=== PATIENT | female | born 1950 | race Caucasian/White ===

== ENCOUNTER 2016-07-21 20:47 | Inpatient (IN) | payer MEDICARE, MEDICAID ==
[~2016-07-21] VITALS: Ht 157.5 cm; Wt 99.8 kg
[2016-07-21 20:00] VITALS: BP_SYST 114; BP_DIAS 60; BP_DIAS 70
[~2016-07-21 20:47] MED LIST: ATEN50TA PO; ESCI20TA36 PO; FURO20TA4 PO; HYDR-523 PO; LEVO100T9 PO; LORA0.5T2 PO; OMEP20TA80 PO; RANI300T4 PO; ZOLP10TA6 PO
[2016-07-21] MEDS ORDERED: CLONIDINE 0.1MG TABLET PO PRN (21:30)
[2016-07-21] MEDS ORDERED: DIPHENHYDRAMINE 50MG/ML VIAL IV PRN (21:30)
[2016-07-21] MEDS ORDERED: NA PHOS,M-B/NA PHOS,DI-BA ENEMA 118ML PR PRN (21:30)
[2016-07-21] MEDS ORDERED: MAGNESIUM/ALUMINUM HYDROXIDE/SIMETHICONE 30ML UDC PO PRN (21:30)
[2016-07-21] MEDS: POLYETHYLENE GLYCOL 3350 (17GM) 1 DOSE PACK PO SCH (22:00)
[2016-07-21] MEDS ORDERED: THROAT LOZENGES-BENZOCAINE/MENTH/CETYLPYRD CL LOZENGES MM PRN (22:30)
[2016-07-21] MEDS ORDERED: PHENOL/SODIUM PHENOLATE 1.4% SRPAY 177ML MT PRN (22:30)
[2016-07-22] MEDS: SODIUM CHLORIDE 0.9% INJ 3ML FLUSH IVF SCH ×4 (00:10→22:14)
[2016-07-22] MEDS: MORPHINE SULFATE 30MG TABLET SR PO SCH ×2 (00:10→08:53)
[2016-07-22] MEDS: ENOXAPARIN 30MG/0.3ML SYR SUBCUT SCH ×3 (00:11→22:35)
[2016-07-22] MEDS: LEVOTHYROXINE SODIUM 150MCG TABLET PO SCH (06:22)
[2016-07-22 06:47] LABS: BASOPHILS % 0.7 % (0.0-2.0); HEMATOCRIT. 31.6 % (36.0-48.0); HEMOGLOBIN. 10.3 g/dL (12.0-16.0); LYMPHOCYTES % 16.3 % (20.0-50.0); MEAN CORPUSCULAR HEMOGLOBIN 27.4 pg (28.0-32.0); MEAN CORPUSCULAR HGB CONC 32.7 g/dL (31.0-37.0); MEAN CORPUSCULAR VOLUME 83.6 fL (81.0-99.0); MONOCYTES % 6.7 % (2.0-8.0); NEUTROPHILS % 73.3 % (40.0-76.0); PLATELET 450 x1000/uL (130-400); RED BLOOD CELL COUNT 3.77 mill/uL (4.2-5.4); RED CELL DISTRIBUTION WIDTH 16.9 % (11.6-14.6); WHITE BLOOD COUNT 13.6 x1000/uL (4.5-11.0)
[2016-07-22 07:04] LABS: ALBUMIN 1.9 g/dL (3.4-5.0); ANION GAP 13; CALCIUM 8.9 mg/dL (8.5-10.1); CARBON DIOXIDE 32 mEq/L (21-32); CHLORIDE 84 mEq/L (98-107); INDEX HEMOLYSI 1 (1-3); INDEX ICTERIC 1 (1-4); INDEX LIPEMIC 1 (1-3)
[2016-07-22 07:12] LABS: ALANINE AMINOTRANSFERASE 16 IU/L (13-61); PREALBUMIN 4.7 mg/dL (20.0-40.0); UREA NITROGEN BLOOD 11 mg/dL (7-21); eGFR > 60 mL/min (>60)
[2016-07-22 08:00] VITALS: BP 110/61
[2016-07-22] MEDS: DOCUSATE SODIUM 100MG CAPSULE PO SCH ×2 (08:53→17:00)
[2016-07-22] MEDS: FUROSEMIDE 20MG TABLET PO SCH (08:53)
[2016-07-22] MEDS: ATENOLOL 50 MG TABLET PO SCH (08:55)
[2016-07-22] MEDS ORDERED: NA PHOS,M-B/NA PHOS,DI-BA ENEMA 118ML PR NR (11:30)
[2016-07-22] MEDS ORDERED: OXYCODONE HCL 5MG TABLET PO SCH (11:30)
[2016-07-22] MEDS: LEVOFLOXACIN 500MG TABLET PO SCH (11:45)
[2016-07-22 12:40] LABS: AMMONIA 30 uMol/L (<32)
[2016-07-22 14:37] LABS: CLARITY URINE CLOUDY (CLEAR); COLOR URINE DARK YELLOW (YELLOW); GLUCOSE URINE NEGATIVE (NEGATIVE); KETONES URINE TRACE (NEGATIVE); LEUKOCYTE ESTERASE URINE 3+ (NEGATIVE); NITRITE URINE POSITIVE (NEGATIVE); OCCULT BLOOD URINE 2+ (NEGATIVE); PROTEIN URINE 1+ (NEGATIVE); SPECIFIC GRAVITY URINE 1.018 (1.005-1.030)
[2016-07-22 15:08] LABS: WBC URINE 50-100 /hpf (0-2)
[2016-07-22 15:09] LABS: BACTERIA URINE 3+; SQUAMOUS EPITHELIAL CELL URINE FEW /lpf (RARE/1+)
[2016-07-22 15:10] LABS: HYALINE CASTS URINE 0-5 /lpf
[2016-07-22] MEDS: OXYCODONE HCL 5MG TABLET PO SCH (17:00)
[2016-07-22 20:00] VITALS: BP 99/51
[2016-07-22] MEDS: POLYETHYLENE GLYCOL 3350 (17GM) 1 DOSE PACK PO SCH (21:00)
[2016-07-22] MEDS: HYDROCODONE/ACETAMINOPHEN 10/325MG TABLET PO PRN (22:21)
[2016-07-23] MEDS: HYDROCODONE/ACETAMINOPHEN 10/325MG TABLET PO PRN (04:04)
[2016-07-23 06:13] LABS: HEMATOCRIT. 30.5 % (36.0-48.0); HEMOGLOBIN. 10.1 g/dL (12.0-16.0); MEAN CORPUSCULAR HEMOGLOBIN 27.6 pg (28.0-32.0); MEAN CORPUSCULAR HGB CONC 33.2 g/dL (31.0-37.0); MEAN PLATELET VOLUME 7.7 fl (7.4-10.4); PLATELET 518 x1000/uL (130-400); RED BLOOD CELL COUNT 3.68 mill/uL (4.2-5.4); RED CELL DISTRIBUTION WIDTH 16.7 % (11.6-14.6); WHITE BLOOD COUNT 12.6 x1000/uL (4.5-11.0)
[2016-07-23 06:16] LABS: DIFFERENTIAL COMMENT 1
[2016-07-23] MEDS: SODIUM CHLORIDE 0.9% INJ 3ML FLUSH IVF SCH ×3 (06:30→22:23)
[2016-07-23] MEDS: LEVOTHYROXINE SODIUM 150MCG TABLET PO SCH (06:30)
[2016-07-23 06:39] LABS: ALANINE AMINOTRANSFERASE 17 IU/L (13-61); ANION GAP 17; CALCIUM 8.7 mg/dL (8.5-10.1); CARBON DIOXIDE 32 mEq/L (21-32); CHLORIDE 79 mEq/L (98-107); INDEX HEMOLYSI 1 (1-3); INDEX ICTERIC 1 (1-4); INDEX LIPEMIC 1 (1-3); UREA NITROGEN BLOOD 17 mg/dL (7-21); eGFR > 60 mL/min (>60)
[2016-07-23 08:00] VITALS: BP 106/70
[2016-07-23] MEDS: ATENOLOL 50 MG TABLET PO SCH (08:40)
[2016-07-23] MEDS: DOCUSATE SODIUM 100MG CAPSULE PO SCH ×2 (08:47→16:27)
[2016-07-23] MEDS: OXYCODONE HCL 5MG TABLET PO SCH ×3 (08:47→16:28)
[2016-07-23] MEDS: FUROSEMIDE 20MG TABLET PO SCH (08:48)
[2016-07-23] MEDS: ENOXAPARIN 30MG/0.3ML SYR SUBCUT SCH ×2 (08:49→22:23)
[2016-07-23 10:01] LABS: ANISOCYTOSIS 1+; PLATELET ESTIMATE INCREASED
[2016-07-23] MEDS: LEVOFLOXACIN 500MG TABLET PO SCH (11:06)
[2016-07-23] MEDS ORDERED: VISCOUS LIDOCAINE 2% 15 ML UDC MM SCH (18:30)
[2016-07-23] MEDS: LIDOCAINE HCL 20 MG/ML 100ML BOTTLE MM PRN (18:48)
[2016-07-23 20:00] VITALS: BP 132/68
[2016-07-23] MEDS: POLYETHYLENE GLYCOL 3350 (17GM) 1 DOSE PACK PO SCH (22:23)
[2016-07-24] MEDS: HYDROCODONE/ACETAMINOPHEN 10/325MG TABLET PO PRN ×2 (01:26→15:24)
[2016-07-24] MEDS: LEVOTHYROXINE SODIUM 150MCG TABLET PO SCH (06:19)
[2016-07-24] MEDS: SODIUM CHLORIDE 0.9% INJ 3ML FLUSH IVF SCH ×3 (06:19→21:47)
[2016-07-24 07:16] LABS: HEMATOCRIT. 32.7 % (36.0-48.0); HEMOGLOBIN. 10.9 g/dL (12.0-16.0); MEAN CORPUSCULAR HEMOGLOBIN 27.8 pg (28.0-32.0); MEAN CORPUSCULAR HGB CONC 33.4 g/dL (31.0-37.0); MEAN CORPUSCULAR VOLUME 83.1 fL (81.0-99.0); MEAN PLATELET VOLUME 7.9 fl (7.4-10.4); PLATELET 596 x1000/uL (130-400); RED BLOOD CELL COUNT 3.94 mill/uL (4.2-5.4); RED CELL DISTRIBUTION WIDTH 16.8 % (11.6-14.6); WHITE BLOOD COUNT 14.7 x1000/uL (4.5-11.0)
[2016-07-24 07:29] LABS: INDEX HEMOLYSI 1 (1-3)
[2016-07-24 07:35] LABS: DIFFERENTIAL COMMENT 1
[2016-07-24 07:45] LABS: FERRITIN 509 ng/mL (10-291)
[2016-07-24 07:48] LABS: CHLORIDE 79 mEq/L (98-107); INDEX HEMOLYSI 1 (1-3); INDEX ICTERIC 1 (1-4); INDEX LIPEMIC 1 (1-3)
[2016-07-24 07:52] LABS: VITAMIN B12 SERUM > 2000 pg/mL (211-911)
[2016-07-24 08:00] VITALS: BP 146/72
[2016-07-24] MEDS: DOCUSATE SODIUM 100MG CAPSULE PO SCH ×2 (08:24→16:07)
[2016-07-24] MEDS: OXYCODONE HCL 5MG TABLET PO SCH (08:24)
[2016-07-24] MEDS: ATENOLOL 50 MG TABLET PO SCH (08:25)
[2016-07-24 08:26] LABS: ALANINE AMINOTRANSFERASE 16 IU/L (13-61); ALBUMIN 2.1 g/dL (3.4-5.0); ANION GAP 20; CALCIUM 9.2 mg/dL (8.5-10.1); CARBON DIOXIDE 27 mEq/L (21-32); HDL CHOLESTEROL 18 mg/dL (40-59); IRON 27 ug/dL (50-175); LDL CHOLESTEROL 111 mg/dL (5-100); MAGNESIUM 1.8 mg/dL (1.8-2.4); PHOSPHORUS 2.2 mg/dL (2.5-4.9); TOTAL IRON BINDING CAPACITY 155 ug/dL (250-450); TRIGLYCERIDE 161 mg/dL (0-150); UREA NITROGEN BLOOD 14 mg/dL (7-21); eGFR > 60 mL/min (>60)
[2016-07-24] MEDS: ENOXAPARIN 30MG/0.3ML SYR SUBCUT SCH ×2 (08:26→21:46)
[2016-07-24] MEDS: LIDOCAINE HCL 20 MG/ML 100ML BOTTLE MM SCH ×3 (08:28→16:08)
[2016-07-24 10:26] LABS: PLATELET ESTIMATE INCREASED
[2016-07-24 10:27] LABS: ANISOCYTOSIS 1+; GIANT PLATELETS 1+
[2016-07-24] MEDS: LEVOFLOXACIN 500MG TABLET PO SCH (11:30)
[2016-07-24] MEDS: POTASSIUM-SODIUM PHOSPHATE POWDER PACKET PO SCH (16:07)
[2016-07-24] MEDS: FERROUS SULFATE 325MG TABLET PO SCH (16:07)
[2016-07-24 20:00] VITALS: BP 120/70
[2016-07-24] MEDS: POLYETHYLENE GLYCOL 3350 (17GM) 1 DOSE PACK PO SCH (21:45)
[2016-07-25] MEDS: HYDROCODONE/ACETAMINOPHEN 10/325MG TABLET PO PRN ×3 (01:26→21:44)
[2016-07-25] MEDS: SODIUM CHLORIDE 0.9% INJ 3ML FLUSH IVF SCH ×3 (06:05→21:44)
[2016-07-25] MEDS: LEVOTHYROXINE SODIUM 150MCG TABLET PO SCH (06:05)
[2016-07-25 07:16] LABS: HEMATOCRIT. 29.7 % (36.0-48.0); HEMOGLOBIN. 10.1 g/dL (12.0-16.0); MEAN CORPUSCULAR HEMOGLOBIN 28.1 pg (28.0-32.0); MEAN CORPUSCULAR VOLUME 82.7 fL (81.0-99.0); MEAN PLATELET VOLUME 7.5 fl (7.4-10.4); PLATELET 565 x1000/uL (130-400); RED BLOOD CELL COUNT 3.59 mill/uL (4.2-5.4); RED CELL DISTRIBUTION WIDTH 16.9 % (11.6-14.6); WHITE BLOOD COUNT 13.9 x1000/uL (4.5-11.0)
[2016-07-25 07:29] LABS: DIFFERENTIAL COMMENT 1
[2016-07-25 07:30] LABS: CHLORIDE 78 mEq/L (98-107); INDEX HEMOLYSI 1 (1-3); INDEX ICTERIC 1 (1-4); INDEX LIPEMIC 1 (1-3)
[2016-07-25 07:48] LABS: ALANINE AMINOTRANSFERASE 14 IU/L (13-61); ANION GAP 16; CALCIUM 8.4 mg/dL (8.5-10.1); CARBON DIOXIDE 30 mEq/L (21-32); UREA NITROGEN BLOOD 16 mg/dL (7-21); eGFR > 60 mL/min (>60)
[2016-07-25 08:00] VITALS: BP 136/73
[2016-07-25] MEDS: LIDOCAINE HCL 20 MG/ML 100ML BOTTLE MM SCH ×3 (09:00→13:00)
[2016-07-25] MEDS: DOCUSATE SODIUM 100MG CAPSULE PO SCH ×2 (09:12→17:48)
[2016-07-25] MEDS: FERROUS SULFATE 325MG TABLET PO SCH ×3 (09:13→17:48)
[2016-07-25] MEDS: ATENOLOL 50 MG TABLET PO SCH (09:13)
[2016-07-25] MEDS: ENOXAPARIN 30MG/0.3ML SYR SUBCUT SCH ×2 (09:13→21:45)
[2016-07-25] MEDS: POTASSIUM-SODIUM PHOSPHATE POWDER PACKET PO SCH ×2 (09:13→17:48)
[2016-07-25] MEDS: LEVOFLOXACIN 500MG TABLET PO SCH (10:02)
[2016-07-25 11:08] LABS: ANISOCYTOSIS 1+; PLATELET ESTIMATE INCREASED
[2016-07-25] MEDS: DEMECLOCYCLINE HCL 300MG TABLET PO SCH ×2 (14:32→21:44)
[2016-07-25 20:00] VITALS: BP 134/83
[2016-07-25 20:06] LABS: AMMONIA 33 uMol/L (<32); INDEX HEMOLYSI 1 (1-3)
[2016-07-25 20:30] LABS: T3 FREE 1.33 pg/ml (2.18-3.98); T4 FREE 1.55 ng/dL (0.76-1.46)
[2016-07-25] MEDS: POLYETHYLENE GLYCOL 3350 (17GM) 1 DOSE PACK PO SCH (21:45)
[2016-07-26] MEDS: SODIUM CHLORIDE 0.9% INJ 3ML FLUSH IVF SCH ×3 (05:59→22:06)
[2016-07-26] MEDS: THROAT LOZENGES-BENZOCAINE/MENTH/CETYLPYRD CL LOZENGES MM PRN ×2 (06:00→12:55)
[2016-07-26] MEDS: DEMECLOCYCLINE HCL 300MG TABLET PO SCH ×3 (06:00→22:05)
[2016-07-26] MEDS: LEVOTHYROXINE SODIUM 150MCG TABLET PO SCH (06:00)
[2016-07-26 06:13] LABS: HEMATOCRIT. 29.1 % (36.0-48.0); HEMOGLOBIN. 9.7 g/dL (12.0-16.0); MEAN CORPUSCULAR HEMOGLOBIN 27.2 pg (28.0-32.0); MEAN CORPUSCULAR HGB CONC 33.3 g/dL (31.0-37.0); MEAN CORPUSCULAR VOLUME 81.7 fL (81.0-99.0); MEAN PLATELET VOLUME 7.3 fl (7.4-10.4); PLATELET 546 x1000/uL (130-400); RED BLOOD CELL COUNT 3.56 mill/uL (4.2-5.4); WHITE BLOOD COUNT 13.3 x1000/uL (4.5-11.0)
[2016-07-26 07:27] LABS: ANION GAP 16; CALCIUM 8.1 mg/dL (8.5-10.1); CARBON DIOXIDE 30 mEq/L (21-32); CHLORIDE 78 mEq/L (98-107); INDEX HEMOLYSI 1 (1-3); INDEX ICTERIC 1 (1-4); INDEX LIPEMIC 1 (1-3); UREA NITROGEN BLOOD 13 mg/dL (7-21); eGFR > 60 mL/min (>60)
[2016-07-26 07:58] LABS: DIFFERENTIAL COMMENT 1
[2016-07-26 08:00] VITALS: BP 115/67
[2016-07-26] MEDS: DOCUSATE SODIUM 100MG CAPSULE PO SCH ×2 (08:43→16:19)
[2016-07-26] MEDS: FERROUS SULFATE 325MG TABLET PO SCH ×3 (08:44→16:19)
[2016-07-26] MEDS: POTASSIUM-SODIUM PHOSPHATE POWDER PACKET PO SCH ×2 (08:45→16:19)
[2016-07-26] MEDS: HYDROCODONE/ACETAMINOPHEN 10/325MG TABLET PO PRN ×2 (08:45→23:11)
[2016-07-26] MEDS: ENOXAPARIN 30MG/0.3ML SYR SUBCUT SCH ×2 (08:46→20:59)
[2016-07-26] MEDS: ATENOLOL 50 MG TABLET PO SCH (08:50)
[2016-07-26] MEDS: LEVOFLOXACIN 500MG TABLET PO SCH (10:03)
[2016-07-26 10:20] VITALS: BP 99/60
[2016-07-26] MEDS: SODIUM CHLORIDE 1000MG TABLET PO SCH ×2 (12:54→16:19)
[2016-07-26 16:54] LABS: PLATELET ESTIMATE INCREASED
[2016-07-26 20:00] VITALS: BP 107/55
[2016-07-26] MEDS: ACETAMINOPHEN 325MG TABLET PO PRN (20:58)
[2016-07-26] MEDS: POLYETHYLENE GLYCOL 3350 (17GM) 1 DOSE PACK PO SCH (21:00)
[2016-07-27 06:06] LABS: HEMATOCRIT. 30.6 % (36.0-48.0); HEMOGLOBIN. 10.2 g/dL (12.0-16.0); MEAN CORPUSCULAR HEMOGLOBIN 27.6 pg (28.0-32.0); MEAN CORPUSCULAR HGB CONC 33.2 g/dL (31.0-37.0); MEAN PLATELET VOLUME 7.2 fl (7.4-10.4); PLATELET 546 x1000/uL (130-400); RED BLOOD CELL COUNT 3.69 mill/uL (4.2-5.4); RED CELL DISTRIBUTION WIDTH 17.3 % (11.6-14.6)
[2016-07-27 06:09] LABS: CHLORIDE 82 mEq/L (98-107); INDEX HEMOLYSI 1 (1-3); INDEX ICTERIC 1 (1-4); INDEX LIPEMIC 1 (1-3)
[2016-07-27] MEDS: SODIUM CHLORIDE 0.9% INJ 3ML FLUSH IVF SCH ×4 (06:19→21:53)
[2016-07-27] MEDS: LEVOTHYROXINE SODIUM 150MCG TABLET PO SCH (06:20)
[2016-07-27] MEDS: DEMECLOCYCLINE HCL 300MG TABLET PO SCH ×3 (06:20→21:52)
[2016-07-27 06:22] LABS: ANION GAP 14; CALCIUM 8.1 mg/dL (8.5-10.1); CARBON DIOXIDE 29 mEq/L (21-32); MAGNESIUM 1.9 mg/dL (1.8-2.4); UREA NITROGEN BLOOD 12 mg/dL (7-21); eGFR > 60 mL/min (>60)
[2016-07-27 06:38] LABS: DIFFERENTIAL COMMENT 1
[2016-07-27 08:00] VITALS: BP 133/68
[2016-07-27] MEDS ORDERED: NA PHOS,M-B/NA PHOS,DI-BA ENEMA 118ML PR NR (08:30)
[2016-07-27] MEDS: HYDROCODONE/ACETAMINOPHEN 10/325MG TABLET PO PRN ×2 (08:54→23:19)
[2016-07-27] MEDS: ATENOLOL 50 MG TABLET PO SCH (08:54)
[2016-07-27] MEDS: DOCUSATE SODIUM 100MG CAPSULE PO SCH ×2 (08:54→17:04)
[2016-07-27] MEDS: SODIUM CHLORIDE 1000MG TABLET PO SCH ×3 (08:54→17:04)
[2016-07-27] MEDS: FERROUS SULFATE 325MG TABLET PO SCH ×3 (08:54→17:04)
[2016-07-27] MEDS: ENOXAPARIN 30MG/0.3ML SYR SUBCUT SCH ×2 (08:55→21:52)
[2016-07-27] MEDS: LACTULOSE 20G/30ML UDC PO SCH ×4 (09:00→21:00)
[2016-07-27] MEDS: BISACODYL 10MG SUPP PR SCH (09:00)
[2016-07-27] MEDS: LEVOFLOXACIN 500MG TABLET PO SCH (11:18)
[2016-07-27] MEDS: LIDOCAINE HCL 20 MG/ML 100ML BOTTLE MM PRN (11:19)
[2016-07-27] MEDS: THROAT LOZENGES-BENZOCAINE/MENTH/CETYLPYRD CL LOZENGES MM PRN ×2 (11:19→17:05)
[2016-07-27 13:30] LABS: PLATELET ESTIMATE INCREASED
[2016-07-27 14:23] LABS: 25-HYDROXY VITAMIN D3 14 ng/mL (.)
[2016-07-27 19:44] VITALS: BP 107/64
[2016-07-27] MEDS: POLYETHYLENE GLYCOL 3350 (17GM) 1 DOSE PACK PO SCH (21:00)
[2016-07-28] MEDS: THROAT LOZENGES-BENZOCAINE/MENTH/CETYLPYRD CL LOZENGES MM PRN (04:48)
[2016-07-28] MEDS: LEVOTHYROXINE SODIUM 150MCG TABLET PO SCH (05:48)
[2016-07-28] MEDS: DEMECLOCYCLINE HCL 300MG TABLET PO SCH ×3 (05:48→21:00)
[2016-07-28] MEDS: SODIUM CHLORIDE 0.9% INJ 3ML FLUSH IVF SCH ×3 (05:49→21:01)
[2016-07-28 05:57] LABS: ANION GAP 12; CALCIUM 8.2 mg/dL (8.5-10.1); CARBON DIOXIDE 31 mEq/L (21-32); CHLORIDE 84 mEq/L (98-107); INDEX HEMOLYSI 1 (1-3); INDEX ICTERIC 1 (1-4); INDEX LIPEMIC 1 (1-3); UREA NITROGEN BLOOD 10 mg/dL (7-21); eGFR > 60 mL/min (>60)
[2016-07-28 06:21] LABS: HEMATOCRIT. 28.4 % (36.0-48.0); HEMOGLOBIN. 9.6 g/dL (12.0-16.0); MEAN CORPUSCULAR HEMOGLOBIN 27.9 pg (28.0-32.0); MEAN CORPUSCULAR HGB CONC 33.7 g/dL (31.0-37.0); MEAN CORPUSCULAR VOLUME 82.9 fL (81.0-99.0); MEAN PLATELET VOLUME 7.4 fl (7.4-10.4); PLATELET 599 x1000/uL (130-400); RED BLOOD CELL COUNT 3.42 mill/uL (4.2-5.4); RED CELL DISTRIBUTION WIDTH 16.8 % (11.6-14.6); WHITE BLOOD COUNT 15.2 x1000/uL (4.5-11.0)
[2016-07-28 07:07] LABS: DIFFERENTIAL COMMENT 1
[2016-07-28 08:00] VITALS: BP 105/51
[2016-07-28] MEDS: DOCUSATE SODIUM 100MG CAPSULE PO SCH ×2 (08:55→16:44)
[2016-07-28] MEDS: FERROUS SULFATE 325MG TABLET PO SCH ×3 (08:55→16:44)
[2016-07-28] MEDS: LACTULOSE 20G/30ML UDC PO SCH ×4 (08:55→21:01)
[2016-07-28] MEDS: SODIUM CHLORIDE 1000MG TABLET PO SCH ×3 (08:55→16:44)
[2016-07-28] MEDS: ATENOLOL 50 MG TABLET PO SCH (08:56)
[2016-07-28] MEDS: ENOXAPARIN 30MG/0.3ML SYR SUBCUT SCH ×2 (08:57→21:01)
[2016-07-28] MEDS: BISACODYL 10MG SUPP PR SCH (09:00)
[2016-07-28 09:01] LABS: ANISOCYTOSIS 1+; PLATELET ESTIMATE INCREASED
[2016-07-28] MEDS: ACETAMINOPHEN 325MG TABLET PO PRN (09:09)
[2016-07-28] MEDS: LEVOFLOXACIN 500MG TABLET PO SCH (10:22)
[2016-07-28] MEDS ORDERED: ERGOCALCIFEROL 50000UNITS CAPSULE PO SCH (17:30)
[2016-07-28 20:00] VITALS: BP 106/71
[2016-07-28 20:25] LABS: GLUCOSE URINE NEGATIVE (NEGATIVE); KETONES URINE NEGATIVE (NEGATIVE); LEUKOCYTE ESTERASE URINE 1+ (NEGATIVE); NITRITE URINE NEGATIVE (NEGATIVE); OCCULT BLOOD URINE 2+ (NEGATIVE); PROTEIN URINE TRACE (NEGATIVE); SPECIFIC GRAVITY URINE 1.021 (1.005-1.030)
[2016-07-28 20:26] LABS: COLOR URINE YELLOW (YELLOW)
[2016-07-28 20:27] LABS: CLARITY URINE HAZY (CLEAR)
[2016-07-28 20:42] LABS: BACTERIA URINE 2+; SQUAMOUS EPITHELIAL CELL URINE FEW /lpf (RARE/1+)
[2016-07-28] MEDS: POLYETHYLENE GLYCOL 3350 (17GM) 1 DOSE PACK PO SCH (21:00)
[2016-07-29] MEDS: ONDANSETRON HCL 4MG/2ML VIAL IV PRN ×2 (01:28→09:50)
[2016-07-29] MEDS: LEVOTHYROXINE SODIUM 150MCG TABLET PO SCH (06:03)
[2016-07-29] MEDS: DEMECLOCYCLINE HCL 300MG TABLET PO SCH ×3 (06:03→21:04)
[2016-07-29] MEDS: SODIUM CHLORIDE 0.9% INJ 3ML FLUSH IVF SCH ×3 (06:03→21:04)
[2016-07-29] MEDS: LACTULOSE 20G/30ML UDC PO SCH ×2 (06:03→13:11)
[2016-07-29 06:55] LABS: HEMATOCRIT. 28.1 % (36.0-48.0); HEMOGLOBIN. 9.6 g/dL (12.0-16.0); MEAN CORPUSCULAR HEMOGLOBIN 27.9 pg (28.0-32.0); MEAN CORPUSCULAR VOLUME 82.1 fL (81.0-99.0); MEAN PLATELET VOLUME 7.2 fl (7.4-10.4); PLATELET 597 x1000/uL (130-400); RED BLOOD CELL COUNT 3.43 mill/uL (4.2-5.4); RED CELL DISTRIBUTION WIDTH 17.1 % (11.6-14.6); WHITE BLOOD COUNT 16.8 x1000/uL (4.5-11.0)
[2016-07-29] MEDS: THROAT LOZENGES-BENZOCAINE/MENTH/CETYLPYRD CL LOZENGES MM PRN ×2 (07:08→21:04)
[2016-07-29 07:15] LABS: ANION GAP 14; CALCIUM 8.3 mg/dL (8.5-10.1); CARBON DIOXIDE 30 mEq/L (21-32); CHLORIDE 84 mEq/L (98-107); INDEX HEMOLYSI 1 (1-3); INDEX ICTERIC 1 (1-4); INDEX LIPEMIC 1 (1-3); UREA NITROGEN BLOOD 10 mg/dL (7-21); eGFR > 60 mL/min (>60)
[2016-07-29 07:39] LABS: DIFFERENTIAL COMMENT 1
[2016-07-29 08:00] VITALS: BP 112/51
[2016-07-29] MEDS: ATENOLOL 50 MG TABLET PO SCH (09:00)
[2016-07-29] MEDS: BISACODYL 10MG SUPP PR SCH (09:30)
[2016-07-29] MEDS: SODIUM CHLORIDE 1000MG TABLET PO SCH ×3 (09:30→17:34)
[2016-07-29] MEDS: DOCUSATE SODIUM 100MG CAPSULE PO SCH (09:30)
[2016-07-29] MEDS: FERROUS SULFATE 325MG TABLET PO SCH ×3 (09:30→17:34)
[2016-07-29] MEDS: ENOXAPARIN 30MG/0.3ML SYR SUBCUT SCH ×2 (09:32→21:04)
[2016-07-29] MEDS: HYDROCODONE/ACETAMINOPHEN 10/325MG TABLET PO PRN ×2 (09:32→18:06)
[2016-07-29 09:45] VITALS: BP 130/67
[2016-07-29] MEDS: LEVOFLOXACIN 500MG TABLET PO SCH (10:28)
[2016-07-29 16:21] LABS: PLATELET ESTIMATE INCREASED
[2016-07-29 18:05] VITALS: BP 135/80
[2016-07-29 20:00] VITALS: BP 109/69
[2016-07-30] MEDS: DEMECLOCYCLINE HCL 300MG TABLET PO SCH ×3 (06:09→21:09)
[2016-07-30] MEDS: SODIUM CHLORIDE 0.9% INJ 3ML FLUSH IVF SCH ×3 (06:09→21:09)
[2016-07-30] MEDS: LEVOTHYROXINE SODIUM 150MCG TABLET PO SCH (06:09)
[2016-07-30] MEDS: THROAT LOZENGES-BENZOCAINE/MENTH/CETYLPYRD CL LOZENGES MM PRN (06:10)
[2016-07-30 06:30] LABS: BASOPHILS % 0.8 % (0.0-2.0); EOSINOPHILS % 2.9 % (0.0-5.0); HEMATOCRIT. 31.4 % (36.0-48.0); HEMOGLOBIN. 10.3 g/dL (12.0-16.0); LYMPHOCYTES % 12.5 % (20.0-50.0); MEAN CORPUSCULAR HEMOGLOBIN 27.2 pg (28.0-32.0); MEAN CORPUSCULAR HGB CONC 32.8 g/dL (31.0-37.0); MEAN CORPUSCULAR VOLUME 82.7 fL (81.0-99.0); MEAN PLATELET VOLUME 7.2 fl (7.4-10.4); MONOCYTES % 5.9 % (2.0-8.0); NEUTROPHILS % 77.9 % (40.0-76.0); PLATELET 656 x1000/uL (130-400); RED CELL DISTRIBUTION WIDTH 16.9 % (11.6-14.6); WHITE BLOOD COUNT 17.4 x1000/uL (4.5-11.0)
[2016-07-30 07:12] LABS: ANION GAP 15; CALCIUM 8.5 mg/dL (8.5-10.1); CARBON DIOXIDE 28 mEq/L (21-32); CHLORIDE 86 mEq/L (98-107); INDEX HEMOLYSI 1 (1-3); INDEX ICTERIC 1 (1-4); INDEX LIPEMIC 1 (1-3); UREA NITROGEN BLOOD 12 mg/dL (7-21)
[2016-07-30 07:13] LABS: eGFR > 60 mL/min (>60)
[2016-07-30 07:58] VITALS: BP 128/87
[2016-07-30] MEDS: ATENOLOL 50 MG TABLET PO SCH (08:37)
[2016-07-30] MEDS: HYDROCODONE/ACETAMINOPHEN 10/325MG TABLET PO PRN (09:48)
[2016-07-30] MEDS: FERROUS SULFATE 325MG TABLET PO SCH ×3 (09:48→16:48)
[2016-07-30] MEDS: SODIUM CHLORIDE 1000MG TABLET PO SCH ×3 (09:48→16:48)
[2016-07-30] MEDS: ENOXAPARIN 30MG/0.3ML SYR SUBCUT SCH ×2 (09:49→21:09)
[2016-07-30] MEDS: LIDOCAINE 5% PATCH TOP SCH (12:55)
[2016-07-30 14:22] LABS: CLARITY URINE CLOUDY (CLEAR); COLOR URINE DARK YELLOW (YELLOW); GLUCOSE URINE NEGATIVE (NEGATIVE); KETONES URINE NEGATIVE (NEGATIVE); LEUKOCYTE ESTERASE URINE 1+ (NEGATIVE); NITRITE URINE NEGATIVE (NEGATIVE); OCCULT BLOOD URINE NEGATIVE (NEGATIVE); PROTEIN URINE TRACE (NEGATIVE); SPECIFIC GRAVITY URINE 1.022 (1.005-1.030)
[2016-07-30 14:39] LABS: BACTERIA URINE 1+; SQUAMOUS EPITHELIAL CELL URINE 3+ /lpf (RARE/1+)
[2016-07-30 14:40] LABS: RBC URINE NONE SEEN /hpf (0-2)
[2016-07-30 14:41] LABS: YEAST URINE FEW
[2016-07-30 20:00] VITALS: BP 111/55
[2016-07-31] MEDS: LEVOTHYROXINE SODIUM 150MCG TABLET PO SCH (06:23)
[2016-07-31] MEDS: DEMECLOCYCLINE HCL 300MG TABLET PO SCH ×3 (06:23→22:09)
[2016-07-31] MEDS: SODIUM CHLORIDE 0.9% INJ 3ML FLUSH IVF SCH ×3 (06:23→22:10)
[2016-07-31 06:27] LABS: BASOPHILS % 1.1 % (0.0-2.0); EOSINOPHILS % 3.5 % (0.0-5.0); HEMATOCRIT. 29.9 % (36.0-48.0); HEMOGLOBIN. 9.7 g/dL (12.0-16.0); LYMPHOCYTES % 15.3 % (20.0-50.0); MEAN CORPUSCULAR HEMOGLOBIN 26.9 pg (28.0-32.0); MEAN CORPUSCULAR HGB CONC 32.5 g/dL (31.0-37.0); MEAN CORPUSCULAR VOLUME 82.8 fL (81.0-99.0); MEAN PLATELET VOLUME 6.7 fl (7.4-10.4); MONOCYTES % 7.3 % (2.0-8.0); NEUTROPHILS % 72.8 % (40.0-76.0); PLATELET 651 x1000/uL (130-400); RED BLOOD CELL COUNT 3.62 mill/uL (4.2-5.4); RED CELL DISTRIBUTION WIDTH 17.1 % (11.6-14.6); WHITE BLOOD COUNT 16.3 x1000/uL (4.5-11.0)
[2016-07-31 07:13] LABS: ANION GAP 14; CALCIUM 8.4 mg/dL (8.5-10.1); CARBON DIOXIDE 29 mEq/L (21-32); CHLORIDE 89 mEq/L (98-107); INDEX HEMOLYSI 1 (1-3); INDEX ICTERIC 1 (1-4); INDEX LIPEMIC 1 (1-3); LIPASE 363 IU/L (73-393); UREA NITROGEN BLOOD 13 mg/dL (7-21); eGFR > 60 mL/min (>60)
[2016-07-31 07:59] VITALS: BP 107/59
[2016-07-31] MEDS: SODIUM CHLORIDE 1000MG TABLET PO SCH (08:18)
[2016-07-31] MEDS: ATENOLOL 50 MG TABLET PO SCH (08:19)
[2016-07-31] MEDS: ENOXAPARIN 30MG/0.3ML SYR SUBCUT SCH ×2 (08:20→22:09)
[2016-07-31] MEDS: FERROUS SULFATE 325MG TABLET PO SCH ×3 (08:20→18:36)
[2016-07-31] MEDS: LIDOCAINE 5% PATCH TOP SCH (08:22)
[2016-07-31] MEDS: HYDROCODONE/ACETAMINOPHEN 10/325MG TABLET PO PRN (09:39)
[2016-07-31] MEDS: THROAT LOZENGES-BENZOCAINE/MENTH/CETYLPYRD CL LOZENGES MM PRN ×2 (11:24→18:36)
[2016-07-31] MEDS: LIDOCAINE HCL 20 MG/ML 100ML BOTTLE MM PRN (11:25)
[2016-07-31 19:00] VITALS: BP 98/62
[2016-08-01] MEDS: ACETAMINOPHEN 325MG TABLET PO PRN ×3 (02:59→17:07)
[2016-08-01] MEDS: LEVOTHYROXINE SODIUM 150MCG TABLET PO SCH (06:32)
[2016-08-01] MEDS: SODIUM CHLORIDE 0.9% INJ 3ML FLUSH IVF SCH ×2 (06:32→14:55)
[2016-08-01] MEDS: DEMECLOCYCLINE HCL 300MG TABLET PO SCH ×2 (06:32→14:55)
[2016-08-01 06:51] LABS: BASOPHILS % 1.1 % (0.0-2.0); EOSINOPHILS % 4.1 % (0.0-5.0); HEMATOCRIT. 28.9 % (36.0-48.0); HEMOGLOBIN. 9.5 g/dL (12.0-16.0); LYMPHOCYTES % 13.8 % (20.0-50.0); MEAN CORPUSCULAR HEMOGLOBIN 27.3 pg (28.0-32.0); MEAN CORPUSCULAR VOLUME 82.7 fL (81.0-99.0); MEAN PLATELET VOLUME 6.8 fl (7.4-10.4); MONOCYTES % 7.8 % (2.0-8.0); NEUTROPHILS % 73.2 % (40.0-76.0); PLATELET 618 x1000/uL (130-400); RED CELL DISTRIBUTION WIDTH 16.7 % (11.6-14.6); WHITE BLOOD COUNT 14.9 x1000/uL (4.5-11.0)
[2016-08-01 07:20] LABS: ANION GAP 14; CALCIUM 8.3 mg/dL (8.5-10.1); CARBON DIOXIDE 29 mEq/L (21-32); CHLORIDE 89 mEq/L (98-107); INDEX HEMOLYSI 1 (1-3); INDEX ICTERIC 1 (1-4); INDEX LIPEMIC 1 (1-3); UREA NITROGEN BLOOD 13 mg/dL (7-21); eGFR > 60 mL/min (>60)
[2016-08-01 08:04] VITALS: BP 87/51
[2016-08-01] MEDS ORDERED: SODIUM CHLORIDE 0.9% 1,000 ML IV SCH (08:45)
[2016-08-01 08:57] LABS: BG BASE EXCESS 2.8 mmol/L (-2.0-2.0); BG CARBOXYHEMOGLOBIN 0.8 % (0.5-1.5); BG DEOXYHEMOGLOBIN 10.4 % (0.0-5.0); BG FRACTION INSPIRED OXYGEN 21; BG METHEMOGLOBIN 0.2 % (0.0-1.5); BG OXYGEN SATURATION 89.5 % (92.0-98.5); BG OXYHEMOGLOBIN 88.6 % (94.0-97.0); BG PCO2 34.7 mmHg (35.0-45.0); BG PH 7.492 (7.350-7.450); BG PO2 55.5 mmHg (75.0-100.0); BG SAMPLE SITE RIGHT RADIAL; BG TOTAL HEMOGLOBIN 10.9 g/dL (12.0-18.0); BG VENT MODE ROOM AIR
[2016-08-01] MEDS: ENOXAPARIN 30MG/0.3ML SYR SUBCUT SCH (09:21)
[2016-08-01] MEDS: FERROUS SULFATE 325MG TABLET PO SCH ×3 (09:22→17:07)
[2016-08-01] MEDS: ATENOLOL 50 MG TABLET PO SCH (09:23)
[2016-08-01] MEDS: LIDOCAINE 5% PATCH TOP SCH (09:24)
[2016-08-01] MEDS ORDERED: CEFTAZIDIME PENTAHYDRATE 1 G in DEXTROSE 5% WATER 50 ML IV SCH (10:00)
[2016-08-01] MEDS ORDERED: VANCOMYCIN 1500MG in DEXTROSE 5% WATER 250ML IV SCH (12:00)
[2016-08-01] MEDS ORDERED: LIDOCAINE HCL/PF 1% 2ML VIAL ONE (12:43)
[2016-08-01 12:44] LABS: CLARITY URINE CLOUDY (CLEAR); COLOR URINE DARK YELLOW (YELLOW); GLUCOSE URINE NEGATIVE (NEGATIVE); KETONES URINE NEGATIVE (NEGATIVE); LEUKOCYTE ESTERASE URINE 1+ (NEGATIVE); NITRITE URINE NEGATIVE (NEGATIVE); OCCULT BLOOD URINE NEGATIVE (NEGATIVE); PH URINE 5.5 (4.5-8.0); PROTEIN URINE NEGATIVE (NEGATIVE); SPECIFIC GRAVITY URINE 1.017 (1.005-1.030); UROBILINOGEN URINE 0.2 E.U./dL (0.2-1.0)
[2016-08-01] MEDS: THROAT LOZENGES-BENZOCAINE/MENTH/CETYLPYRD CL LOZENGES MM PRN (12:54)
[2016-08-01 13:12] LABS: BACTERIA URINE NONE SEEN; MUCUS URINE TRACE /lpf (< = 2+); RBC URINE 0-2 /hpf (0-2); SQUAMOUS EPITHELIAL CELL URINE FEW /lpf (RARE/1+)
[2016-08-01 16:38] VITALS: BP 104/56
[2016-08-01] MEDS ORDERED: LORA0.5T2 PO (20:15)
[2016-08-01] MEDS ORDERED: ZOLP10TA6 PO (20:15)
[2016-08-01] MEDS ORDERED: FURO20TA4 PO (20:15)
[2016-08-01] MEDS ORDERED: ESCI20TA36 PO (20:15)
[2016-08-01] MEDS ORDERED: HYDR-523 PO (20:15)
[2016-08-01] MEDS ORDERED: OMEP20CA10 PO (20:15)
[2016-08-02] MEDS ORDERED: VANCOMYCIN 1250MG in DEXTROSE 5% WATER 250ML IV SCH (06:00)
== END 2016-08-01 19:45 | disposition short-term general hospital (02) | DRG 542 ==
PROVIDERS: ADMIT Physical Medicine & Rehabilitation Spinal Cord Injury Medicine; ATTEND Internal Medicine
DX: M48.56XA Collapsed vertebra, not elsewhere classified, lumbar region, initial encounter for fracture (principal); E43 Unspecified severe protein-calorie malnutrition; G92 Toxic encephalopathy; A41.9 Sepsis, unspecified organism; E87.1 Hypo-osmolality and hyponatremia; N39.0 Urinary tract infection, site not specified; Z68.41 Body mass index [BMI] 40.0-44.9, adult; M48.06 Spinal stenosis, lumbar region; D64.9 Anemia, unspecified; E03.9 Hypothyroidism, unspecified; E66.01 Morbid (severe) obesity due to excess calories; K21.9 Gastro-esophageal reflux disease without esophagitis; M54.16 Radiculopathy, lumbar region; M75.102 Unspecified rotator cuff tear or rupture of left shoulder, not specified as traumatic; N18.1 Chronic kidney disease, stage 1; R74.0 Nonspecific elevation of levels of transaminase and lactic acid dehydrogenase [LDH]; W19.XXXA Unspecified fall, initial encounter; Z96.653 Presence of artificial knee joint, bilateral; M19.90 Unspecified osteoarthritis, unspecified site; R26.9 Unspecified abnormalities of gait and mobility; S82.892A Other fracture of left lower leg, initial encounter for closed fracture; S82.891A Other fracture of right lower leg, initial encounter for closed fracture; E87.8 Other disorders of electrolyte and fluid balance, not elsewhere classified; K14.0 Glossitis; I12.9 Hypertensive chronic kidney disease with stage 1 through stage 4 chronic kidney disease, or unspecified chronic kidney disease; B96.89 Other specified bacterial agents as the cause of diseases classified elsewhere; E61.1 Iron deficiency; F03.90 Unspecified dementia, unspecified severity, without behavioral disturbance, psychotic disturbance, mood disturbance, and anxiety; R94.6 Abnormal results of thyroid function studies; B96.20 Unspecified Escherichia coli [E. coli] as the cause of diseases classified elsewhere; D75.89 Other specified diseases of blood and blood-forming organs; E55.9 Vitamin D deficiency, unspecified; R41.0 Disorientation, unspecified
CPT/HCPCS: 36415; 36600; 70450; 70551; 71010; 74000; 80048; 80053; 80061; 81001; 82140; 82306; 82375; 82607; 82728; 82746; 82805; 82962; 83036; 83540; 83550; 83690; 83735; 83930; 83935; 84100; 84134; 84439; 84443; 84481; 84630; 85025; 87040; 87077; 87086; 87186; 87493; 92523; 92610; 97110; 97162; 97167; 97530; 97532; 97535; A4565; A6261; C1893; J0713; J1650; J2405; J3370; J3490; J7030; J7060